=== PATIENT | female | born 1965 | race Caucasian/White ===

== ENCOUNTER 2023-10-05 11:19 | Emergency (ER) | payer OTHER, SELFPAY ==
[2023-10-05 11:28] VITALS: BP 129/83; PULSE 98; RESP 16; TEMP 36.6; O2SAT 97
--- NOTE | 2023-10-05 12:03 | ED.EAR ---
HPI - Ear Problem General Chief complaint: Ear Stated complaint: Dizzy;Earache Time Seen by Provider: 10/05/23 11:52 Source: patient and RN notes reviewed Mode of arrival: ambulatory Limitations: no limitations History of Present Illness HPI Narrative: Patient presents today complaining of 2 day history of feeling off balance and dizzy. She also reports some right ear discomfort and pain since yesterday. Denies any additional symptoms. Reports she had similar symptoms of approximately 10 years ago and had an ear infection.. She has taken Zyrtec without relief. Review of Systems Review of Systems: CONSTITUTIONAL: Denies body aches, fever, chills, or sweats. EYES: Denies visual changes, redness, or discharge. ENT: Denies rhinorrhea, congestion, sore throat. + right ear pain CARDIOVASCULAR: Denies chest pain, palpitations, or edema. RESPIRATORY: Denies cough or dyspnea. GASTROINTESTINAL: Denies abdominal pain, nausea, vomiting, or diarrhea. GENITOURINARY: Denies dysuria or hematuria. SKIN: Denies rash, itching, or wounds. MUSCULOSKELETAL: Denies back pain, joint pain, or myalgia. NEUROLOGIC: Denies headache, numbness, tingling, or weakness.+ dizziness PSYCH: Denies depression or anxiety. PMFSH Comments At time of signature, I have reviewed and agree with nursing past medical, surgical, social and family history unless otherwise noted. Please see nursing chart for further information. There is no relevant family history pertinent to the presenting complaint Exam Narrative: GENERAL: Well-appearing, well-nourished, and in no acute distress. HEAD: Normocephalic, atraumatic. EYES: EOMI. PERRL. No redness or drainage. Conjunctivae normal. ENT: Mucous membranes pink and moist. Left TM normal. Right TM bulging with clear fluid with bubbles. NECK: Normal AROM. CHEST: No respiratory distress. EXTREMITIES: Normal range of motion. No edema. SKIN: Warm, dry, no rash. Capillary refill normal. Normal skin turgor. NEURO: No focal deficits. Alert and oriented x3. Gait unsteady. PSYCH: Normal affect. No signs of depression or anxiety. Course Course Level of Care: Express Care Visit Vital Signs Vital signs: Vital Signs Temperature 97.8 F 10/05/23 11:28 Pulse Rate 98 10/05/23 11:28 Respiratory Rate 16 10/05/23 11:28 Blood Pressure 129/83 10/05/23 11:28 Pulse Oximetry 97 10/05/23 11:28 Temperature 97.8 F 10/05/23 11:28 Pulse Rate 98 10/05/23 11:28 Respiratory Rate 16 10/05/23 11:28 Blood Pressure 129/83 10/05/23 11:28 Pulse Oximetry 97 10/05/23 11:28 Reviewed Medical Decision Making MDM Narrative Medical decision making narrative: Patient has serous effusion. Discussed [id number] treatment with Sudafed, Flonase, and meclizine. Differential Diagnosis Differential Diagnosis: Otitis media, otitis externa, ruptured TM, serous otitis, eustachian tube dysfunction, vertigo, BPPV, Meniere's disease Vital Signs Vital Signs: Vital Signs Temperature 97.8 F 10/05/23 11:28 Pulse Rate 98 10/05/23 11:28 Respiratory Rate 16 10/05/23 11:28 Blood Pressure 129/83 10/05/23 11:28 Pulse Oximetry 97 10/05/23 11:28 Temperature 97.8 F 10/05/23 11:28 Pulse Rate 98 10/05/23 11:28 Respiratory Rate 16 10/05/23 11:28 Blood Pressure 129/83 10/05/23 11:28 Pulse Oximetry 97 10/05/23 11:28 Critical Care Time Critical Care Time Critical Care Time: No Discharge Plan Discharge Clinical Impression: Vertigo Acute serous otitis media of right ear Qualifiers: Recurrence: non-recurrent Qualified Code(s): H65.01 - Acute serous otitis media, right ear Patient Disposition: Home, Self-Care Condition: Stable Instructions: Fluid In The Ear (Serous Otitis Media) (ED), Vertigo (DC) Additional Instructions: You have a collection of fluid behind the right eardrum. Please take Sudafed, Flonase, and some meclizine(Bonine) for your symptoms. If
== END 2023-10-05 12:10 | disposition home or self-care (01) ==
PROVIDERS: Emergency Provider Nurse Practitioner
DX: R42 Dizziness and giddiness (principal); H65.01 Acute serous otitis media, right ear
CPT/HCPCS: 99211; G0463

== ENCOUNTER 2024-04-29 08:01 | Emergency (ER) | payer OTHER, SELFPAY ==
--- NOTE | 2024-04-29 08:12 | ED.URI ---
HPI - URI/Sore Throat General Chief Complaint: Upper Respiratory Infection Stated Complaint: COUGH/FEVER/BODY ACHES Source: patient and RN notes reviewed Mode of arrival: ambulatory Limitations: no limitations History of Present Illness HPI Narrative: 58 year old female presents to the clinic today with a chief complaint of cough, congestion, and fevers. Onset 3 days. She reports a fever as high as 101, productive cough with green sputum, nasal/chest congestion, and ear pressure. She has been taking Tylenol and OTC Nyquil. She denies any associated dyspnea, chest pain, palpitations, nausea, vomiting, or diarrhea. She recently traveled here from [place] and denies any known sick contacts. MD elicited complaint: cough Related Data Allergies Allergy/AdvReac Type Severity Reaction Status Date / Time No Known Allergies Allergy Verified 04/29/24 08:28 Review of Systems Review of Systems: CONSTITUTIONAL: Endorses malaise and fever EYES: Denies visual changes, redness, or discharge ENT: Reports rhinorrhea, congestion, otalgia. Denies sore throat CARDIOVASCULAR: Denies chest pain, palpitations, edema RESPIRATORY: Reports cough, post nasal drainage. Denies dyspnea GASTROINTESTINAL: Denies abdominal pain, nausea, vomiting, diarrhea SKIN: Denies rash or itching MUSCULOSKELETAL: Endorses myalgia NEUROLOGIC: Denies headache [facility] Surgical History Surgical History H/O bariatric surgery Social History Social History Smoking status: Never smoker Exam Narrative: GENERAL: Ill-appearing, nontoxic, no acute distress. HEAD: Normocephalic EYES: PERRLA, conjunctivae clear ENT: Mucous membranes moist. Nasal congestion noted. TM pearly jain with dull light reflex bilaterally, right ear with minimal clear effusion. No tragal tenderness NECK: Supple. No lymphadenopathy CHEST: Clear to auscultation, breath sounds equal. No wheezing, rhonchi, rales, or stridor. No respiratory distress, speaks in full sentences. Frequent moist, productive cough HEART: Regular rate and rhythm. No murmur heard. SKIN: Warm, dry, no rash. NEURO: Alert and oriented x3. PSYCH: Normal mood and affect Course Course Emergency Course: Patient is aware of diagnosis, understands and agrees to treatment plan. Anticipatory guidance given. Patient agrees to follow-up as directed and is aware of reasons to seek care at the emergency department. Portions of this record may have been created with voice recognition software Level of Care: Express Care Visit Vital Signs Vital signs: reviewed MDM - URI/Sore Throat MDM Narrative Medical decision making narrative: Discussed physical exam findings and COVID test result. Reviewed prescriptions. Advised supportive measures and signs/symptoms to go to the ER. Pt is appropriate for outpt treatment and f/u. Differential Diagnosis Differential diagnosis: Likely upper respiratory infection, otitis media, sinusitis, viral infection, bronchitis and influenza Discharge Plan Discharge Clinical Impression: COVID-19 Patient Disposition: Home, Self-Care Condition: Stable Instructions: COVID-19 (Coronavirus Disease 2019) (ED) Additional Instructions: Your rapid COVID test was positive today. The following updated recommendations have been made by the CDC and local Health Departments, regarding COVID-19: - When people get sick with a respiratory virus, they stay home and away from others. - Return to normal activities when, for at least 24 hours, symptoms are improving overall, and if a fever was present, it has been gone without use of a fever-reducing medication. - Once people resume normal activities, they are encouraged to take additional prevention strategies for the next 5 days to curb disease spread, such as taking more steps for venetian blind cleaner air, enhancing hygiene practices, wearing a well-fitting mask, ke
[2024-04-29 08:17] VITALS: BP 133/82; PULSE 111; RESP 16; TEMP 36.8; O2SAT 98
--- NOTE | 2024-04-29 09:00 | PC.NURSE ---
[id number]- pt called and states that the [facility] doesnt have a pharmacist on duty right now, and asked if we could resend the scripts to the [facility] in [place].
== END 2024-04-29 08:38 | disposition home or self-care (01) ==
PROVIDERS: Emergency Provider Nurse Practitioner Family
DX: U07.1 COVID-19 (principal)
CPT/HCPCS: 87426; 99213; G0463

== ENCOUNTER 2024-05-29 13:37 | Emergency (ER) | payer OTHER, SELFPAY ==
[2024-05-29] VITALS (12 sets, daily range): BP systolic 124–150; BP diastolic 61–85; PULSE 81–105; RESP 17–22; TEMP 36.4–36.6; O2SAT 96–99
--- NOTE | ~2024-05-29 | XR_ITS ---
A [id number] Ordering provider: Leonard Ashton MD History: . Left posterior rib pain after fall . Comparison: None. FINDINGS: BONES: No acute left rib fracture or fracture of the visualized osseous structures. LEFT LUNG: No effusions or infiltrates. No pneumothorax. Prominent markings are seen in the lingula. SOFT TISSUES: Normal. IMPRESSION: No left rib fracture. (Note: subtle/nondisplaced rib fractures can be occult on plain films and if t here is continued clinical suspicion for rib fracture, recommend follow up CT chest.) Reviewed, dictated and finalized at location A. IMPRESSION: No left rib fracture. (Note: subtle/nondisplaced rib fractures can be occult o n plain films and if there is continued clinical suspicion for rib fracture, re commend follow up CT chest.)
--- NOTE | ~2024-05-29 | CT_ITS ---
EXAMINATION: CT diagnostic chest wo con DATE: 05/29/2024 17:30 INDICATION: Eval L rib fracture TECHNIQUE: Computed tomography (CT) of the chest was performed without intravenous contrast. Addition al 3D reconstructions utilizing coronal maximum intensity projection (MIP) were performed. Automated exposure control and iterative reconstruction technique were employed. The dose-length product was 78 5.62 mGy-cm. COMPARISON: None FINDINGS: There are scattered atelectasis in both lungs most prominent in the left lower lobe with mild elevati on of left hemidiaphragm. No pleural effusion or pneumothorax. Small pneumatocele in the right lower lobe. There are a few small pulmonary nodules in the right middle lobe measuring up to 5 mm. Heart si ze is normal. Atherosclerotic coronary artery calcific lesion. No pericardial effusion. Thoracic aort a is normal in caliber. No pathologically enlarged thoracic lymphadenopathy. Cholecystectomy clips in the gallbladder fossa. 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 Nondisplace d fracture of the lateral left eighth rib. IMPRESSION: 1. Scattered atelectasis in both lungs most prominent in the left lower lobe which likely related to splinting secondary to nondisplaced lateral left eighth rib fracture. No pneumothorax or pleural effu korey. 2. A few small nodules measuring up to 5 mm in the right middle lobe. If the patient is low risk for lung cancer, no follow-up is needed. If the patient is high risk (i.e., history of smoking or asbesto s or significant radiation exposure), optional follow-up chest CT could be considered at 12 months. Reviewed, dictated and finalized at location A. IMPRESSION: 1. Scattered atelectasis in both lungs most prominent in the left lower lobe wh ich likely related to splinting secondary to nondisplaced lateral left eighth r ib fracture. No pneumothorax or pleural effusion. 2. A few small nodules measuring up to 5 mm in the right middle lobe. If the pa tient is low risk for lung cancer, no follow-up is needed. If the patient is hi gh risk (i.e., history of smoking or asbestos or significant radiation exposure ), optional follow-up chest CT could be considered at 12 months.
--- NOTE | 2024-05-29 16:30 | ECG_ITS ---
Test Date: 2024-05-29 16:53:29 Measurements Intervals [place] Rate: 88 P: 32 MD: 157 QRS: -16 QRSD: 78 T: 30 QT: 348 QTc: 422 Interpretive Statements SINUS RHYTHM CONSIDER PREVIOUS INFERIOR INFARCTION POOR R-WAVE PROGRESSION ABNORMAL ELECTROCARDIOGRAM No previous ECG available for comparison Electronically Signed On 05-30-2024 09:26:08 CDT by Satinder Bowman M.D.
[2024-05-29] MEDS: SODIUM CHLORIDE 0.9% IV 2,000 ML 999 ML IV CONT (17:04)
[2024-05-29] MEDS: methocarbamoL 750 MG TABLET 1500 MG PO (17:05)
[2024-05-29] MEDS: ACETAMINOPHEN 500 MG TABLET 1000 MG PO (17:05)
[2024-05-29] MEDS: KETOROLAC 15 MG/ML VIAL (*BKC) IV PUSH (17:06)
--- NOTE | 2024-05-29 17:21 | ED.GENADULT ---
HPI - General Adult General Chief complaint: Fall Stated complaint: fall, woke up on the floor, L sided rib pain Time Seen by Provider: 05/29/24 16:19 History of Present Illness HPI narrative: This is a 58-year-old female presenting ED with left-sided rib pain. Patient says that she went to bed at 8:30 p.m.. She woke up in the landing next to her bathroom. She then went back to sleep and when she got up at 5:00 a.m. She went to her bathroom she noticed that multiple objects were knocked over in the bathroom. She does not remember any falls or even getting up to use the restroom. Her only complaint at this time is pain in her back left ribs. Pain is worse with inspiration. It is tender to touch. She is worried she cracked her ribs. No chest pain difficulty breathing fevers or recent nausea vomiting diarrhea. Related Data Allergies Allergy/AdvReac Type Severity Reaction Status Date / Time No Known Allergies Allergy Verified 04/29/24 08:28 [facility] Surgical History Surgical History H/O bariatric surgery Social History Social History Smoking status: Never smoker Exam Narrative: APPEARANCE: No apparent distress. Head: atraumatic. EYES: EOMI, NOSE: Atraumatic NECK: Trachea midline RESPIRATORY: No increased rate of breathing, clear to auscultation, splinting CARDIOVASCULAR: RRR, no peripheral edema ABDOMINAL: Non-distended soft nontender MUSCULOSKELETAl: Tenderness to palpation along the posterior left rib cage. No other injuries on head to toe palpation. NEURO: Alert. Moving 4/4 extremities SKIN:: Warm, dry. Normal color PSYCHIATRIC: Normal affect Course Vital Signs Vital signs: Vital Signs Temperature 97.6 F 05/29/24 13:46 Pulse Rate 99 05/29/24 13:46 Respiratory Rate 20 05/29/24 13:46 Blood Pressure 140/84 05/29/24 13:46 Pulse Oximetry 98 05/29/24 13:46 Oxygen Delivery Room Air 05/29/24 13:46 Temperature 97.8 F 05/29/24 15:59 Pulse Rate 96 05/29/24 15:59 Respiratory Rate 18 05/29/24 15:59 Blood Pressure 130/81 05/29/24 15:59 Pulse Oximetry 99 05/29/24 15:59 Oxygen Delivery Room Air 05/29/24 13:46 Medical Decision Making [facility] Narrative Medical decision making narrative: -Course: 58-year-old female presenting with a fall overnight. Trauma workup significant for a lateral left rib fracture. Patient given pain medication and incentive spirometer. In terms of the patient's syncope her workup was unremarkable. She has normal laboratory values, negative troponin and BMP. Unremarkable EKG. Likely orthostatic after using the restroom. Patient is comfortable follow-up with primary care physician. -DDX includes but is not limited to: Rib fracture, pneumothorax, hemothorax, cardiac syncope, dehydration -Independent interpretation of studies: Labs reviewed Chest x-ray negative CT showed a left lateral rib fracture Independent EKG interpretation: Rhythm [sinus], Rate [88], [place] -[normal], ME -[normal], QRS [narrow], QTC [normal], T waves -[negative for concerning inversions], ST Segments - [Negative for concerning elevations] Final interpretations: [Normal Sinus Rhythm] -Interventions: Toradol, Tylenol, oxycodone, Robaxin, lidocaine -Shared decision making / Disposition: Discharged -RX oxycodone, Tylenol, Motrin, Robaxin, lidocaine patch Vital Signs Vital Signs: Vital Signs Temperature 97.6 F 05/29/24 13:46 Pulse Rate 99 05/29/24 13:46 Respiratory Rate 20 05/29/24 13:46 Blood Pressure 140/84 05/29/24 13:46 Pulse Oximetry 98 05/29/24 13:46 Oxygen Delivery Room Air 05/29/24 13:46 Temperature 97.8 F 05/29/24 15:59 Pulse Rate 96 05/29/24 15:59 Respiratory Rate 18 05/29/24 15:59 Blood Pressure 130/81 05/29/24 15:59 Pulse Oximetry 99 05/29/24 15:59 Oxygen Delivery Room Air 05/29/24 13:46 Discharg
[2024-05-29 17:24] LABS: Basophils Percent Auto 0.4 % (0.2-1.2); Eosinophils Percent Auto 0.6 % (0-4.4); Hematocrit 42.9 % (37.0-47.0); Hemoglobin 13.8 g/dL (12.0-15.0); Immature Granulocyte Absolute 0.02 K/mm3 (0.00-0.031); Immature Granulocyte Percent A 0.3 % (0-0.5); Lymphocytes Absolute Auto 2.06 K/mm3 (0.9-3.2); Lymphocytes Percent Auto 28.8 % (18.3-44.2); Mean Corpuscular HGB Conc 32.2 g/dl (32-36); Mean Corpuscular Hemoglobin 29.4 pg (26-34); Mean Corpuscular Volume 91.5 fl (80-100); Mean Platelet Volume 9.6 fl (7.4-10.4); Monocytes Absolute Auto 0.5 K/mm3 (0.1-0.6); Monocytes Percent Auto 6.7 % (2.6-8.5); Neutrophils Absolute Auto 4.5 K/mm3 (1.3-6.7); Neutrophils Percent Auto 63.2 % (45.5-73.1); Platelet Count Result 292 k/mm3 (150-375); Red Blood Count 4.69 M/mm3 (4.2-5.4); Red Cell Distribution Width 15.1 % (11.5-14.5); White Blood Count 7.2 K/mm3 (4.5-10.0)
[2024-05-29 17:34] LABS: Alanine Aminotransferase 15 U/L (6-35); Albumin Level 4.2 g/dL (3.5-5.1); Alkaline Phosphatase 99 U/L (38-126); Anion Gap 6 mmol/L (4-12); Aspartate Amino Transferase 25 U/L (14-36); Bilirubin,Total 0.4 mg/dL (0.2-1.3); Blood Urea Nitrogen 17 mg/dL (7-17); Carbon Dioxide 32 mmol/L (22-30); Chloride 98 mmol/L (98-107); Estimated CRCL calculation 97 ml/min; Estimated Glomerular Filt Rate > 60; Glucose 104 mg/dL (65-110); Potassium 4.1 mmol/L (3.4-5.0); Sodium 136 mmol/L (137-145)
[2024-05-29 17:46] LABS: NT Pro B Type Natriuretic Pept 25 pg/mL (19.9-100); Troponin I < 0.012 ng/mL (0.000-0.034)
[2024-05-29] MEDS: oxyCODONE HCL (*CRX) 5 MG TAB IR PO (19:09)
[2024-05-29] MEDS: LIDOCAINE 5% PATCH 1 PATCH TRANSDERM (19:10)
== END 2024-05-29 19:36 | disposition home or self-care (01) ==
PROVIDERS: Emergency Provider Emergency Medicine
DX: S22.32XA Fracture of one rib, left side, initial encounter for closed fracture (principal); R55 Syncope and collapse; Z98.84 Bariatric surgery status; R91.8 Other nonspecific abnormal finding of lung field; R94.31 Abnormal electrocardiogram [ECG] [EKG]; W18.39XA Other fall on same level, initial encounter
CPT/HCPCS: 36415; 71101; 71250; 80053; 83880; 84484; 85025; 93005; 96361; 96374; 99284; A9270; J1885; J7030

== ENCOUNTER 2025-04-03 08:04 | Emergency (ER) | payer OTHER, SELFPAY ==
--- NOTE | ~2025-04-03 | XR_ITS ---
EXAMINATION: XR chest 2V DATE: 04/03/2025 08:51 INDICATION: Cough TECHNIQUE: frontal and lateral views of the chest were obtained. COMPARISON: Chest radiograph and CT dated 05/29/2024 FINDINGS: Unchanged elevation the left hemidiaphragm. Mild streaky left basilar atelectasis. No pulmonary edema , pleural effusion or pneumothorax. The cardiomediastinal silhouette is normal. Mild thoracic dextroc urvature. IMPRESSION: 1. Chronic elevation left hemidiaphragm with mild streaky left basilar atelectasis. Reviewed, dictated and finalized at location A. IMPRESSION: 1. Chronic elevation left hemidiaphragm with mild streaky left basilar atelecta sis.
[2025-04-03 08:15] VITALS: BP 131/70; PULSE 101; RESP 16; TEMP 36.6; O2SAT 97
[2025-04-03 08:29] LABS: EDSTREPNEGPOS1 Negative (Negative)
--- NOTE | 2025-04-03 08:43 | ED.GENADULT ---
HPI - General Adult General Chief complaint: Upper Respiratory Infection Stated complaint: Sore Throat Source: patient Mode of arrival: ambulatory Limitations: no limitations History of Present Illness HPI narrative: Pt presents for evaluation of cough and sore throat. She states she has experienced a cough for the past month. She went to urgent care on 03/15 and had a chest x-ray that showed pneumonia. The provider that evaluated her recommended treatment with two antibiotics. Patient declined taking to, desiring only to take one. She completed a course of seven days of augmentin. Her symptoms improved but did not resolve. Two days ago she experienced worsening of her symptoms. She has a productive cough of green sputum and experiences wheezing when she lays down at night. She has a history of recurrent bronchitis. She has not been diagnosed with asthma or COPD. She does not smoke. She previously had a script for albuterol inhaler but ran out. No recent sick contacts to her knowledge. She reports a temperature of 100 F at home today. No chills, nausea, vomiting, diarrhea or SOB. She is getting ready to leave for cruise. Related Data Allergies Allergy/AdvReac Type Severity Reaction Status Date / Time No Known Allergies Allergy Verified 04/03/25 08:16 Review of Systems Review of Systems: CONSTITUTIONAL: Denies fever, chills, or sweats. EYES: Denies visual changes, redness, or discharge. ENT: Reports sore throat.Denies rhinorrhea, congestion, or otalgia. CARDIOVASCULAR: Denies chest pain, palpitations, or edema. RESPIRATORY: Reports cough. Reports wheezing at night. GASTROINTESTINAL: Denies abdominal pain, nausea, vomiting, or diarrhea. GENITOURINARY: Denies dysuria or hematuria. SKIN: Denies rash or itching. MUSCULOSKELETAL: Denies back pain, joint pain, or myalgia. NEUROLOGIC: Denies headache, numbness, dizziness, or weakness. PSYCHIATRIC: Denies anxiety or depression. [facility] Past Medical History Medical History No pertinent past medical history Surgical History Surgical History H/O bariatric surgery Family History Family History Mother Family history non-contributory Social History Social History (Updated 04/03/25 @ 08:48 by MARA GordilloP, ) Smoking status: Never smoker Substance use: never Gender identity (if verbalized by the patient): Female Exam Narrative: GENERAL: Well-appearing, well-nourished, and in no acute distress. HEAD: Normocephalic, atraumatic. EYES: PERRLA and EOMI. ENT: Nares clear, no rhinorrhea or epistaxis. Mucous membranes moist. Oropharynx without tonsillar hypertrophy exudate or other lesions. Bilateral TMs pearly jain nonbulging NECK: Supple. No adenopathy or masses. No carotid bruits or JVD CHEST: cough present on exam. Clear to auscultation. No respiratory distress. No wheezes rales or rhonchi HEART: Regular rate and rhythm. No murmur heard. Normal peripheral pulses. ABDOMEN: Soft, nontender, nondistended, normal active bowel sounds. EXTREMITIES: Normal range of motion. No edema. SKIN: Warm, dry, no rash. NEURO: No focal deficits. Alert and oriented x3. PSYCH: Normal mood and affect. Course Course Emergency Course: This is a 59-year-old female who presented for evaluation of sick symptoms. Strep negative. Chest x-ray read as atelectasis. patient was only given monotherapy for her pneumonia. Given the fact that she never had complete resolution of her symptoms, her clinical exam is consistent with pneumonia. Will discharge with Augmentin, doxycycline, prednisone, albuterol, guaifenesin with codeine as she is leaving for a cruise. She should follow up with her PCP and go to the ER for worsening symptoms. Pt in agreement with plan of care. Level of Care: Express Care Visit Vital Signs Vital signs: Vital Signs Temperature 36.6 C 04/03/25 08:15 Pulse Rate 101 H 04/03/25 08:15 Respiratory Rate 16 04/03/25 08:15 Blood Pressure 131/70 04/03/25 08:15 Pulse Oximetry 97 04/03/25 08:15 Oxygen Delivery Room Air 04/03/25 08:15 Temperature 36.6 C 04/03/25 08:15 Pulse Rate 101 H 04/03/25 08:15 Respiratory Rate 16 04/03/25 08:15 Blood Pressure 131/70 04/03/25 08:15 Pulse Oximetry 97 04/03/25 08:15 Oxygen Delivery Room Air 04/03/25 08:15 Medical Decision Making Vital Signs Vital Signs: Vital Signs Temperature 36.6 C 04/03/25 08:15 Pulse Rate 101 H 04/03/25 08:15 Respiratory Rate 16 04/03/25 08:15 Blood Pressure 131/70 04/03/25 08:15 Pulse Oximetry 97 04/03/25 08:15 Oxygen Delivery Room Air 04/03/25 08:15 Temperature 36.6 C 04/03/25 08:15 Pulse Rate 101 H 04/03/25 08:15 Respiratory Rate 16 04/03/25 08:15 Blood Pressure 131/70 04/03/25 08:15 Pulse Oximetry 97 04/03/25 08:15 Oxygen Delivery Room Air 04/03/25 08:15 Lab Data Labs: Lab Results 04/03/25 Range/Units 08:28 POC Grp A Strep Screen Negative (Negative) Imaging Data Radiologist's impression: EXAMINATION: XR chest 2V DATE: 04/03/2025 08:51 INDICATION: Cough TECHNIQUE: frontal and lateral views of the chest were obtained. COMPARISON: Chest radiograph and CT dated 05/29/2024 FINDINGS: Unchanged elevation the left hemidiaphragm. Mild streaky left basilar atelectasis. No pulmonary edema, pleural effusion or pneumothorax. The cardiomediastinal silhouette is normal. Mild thoracic dextrocurvature. IMPRESSION: 1. Chronic elevation left hemidiaphragm with mild streaky left basilar atelectasis. Discharge Plan Discharge Clinical Impression: Community acquired pneumonia Patient Disposition: Home Condition: Stable Instructions: Antibiotic Form, Community Acquired Pneumonia (ED) Patient Language: Maltese Prescriptions: New amoxicillin-pot clavulanate 875-125 mg tablet 1 tablet PO Q12H Qty: 20 0RF doxycycline hyclate 100 mg tablet 100 mg PO BID Qty: 20 0RF prednisone 50 mg tablet 50 mg PO DAILY Qty: 5 0RF albuterol sulfate [Ventolin HFA] 90 mcg/actuation HFA aerosol inhaler 2 puff inhalation QID PRN (Reason: shortness of breath or wheezing) Qty: 8.5 0RF No Action albuterol sulfate 90 mcg/actuation HFA aerosol inhaler 2 inh inhalation QID PRN (Reason: shortness of breath or wheezing) Qty: 8.5 0RF acetaminophen 500 mg tablet 1,000 mg PO TID PRN (Reason: richard) 7 Days Qty: 42 0RF Follow-up/Referrals: Jimi Hoskins MD [Physician] - Time of Disposition: 09:18
== END 2025-04-03 09:20 | disposition home or self-care (01) ==
PROVIDERS: Emergency Provider Nurse Practitioner
DX: J18.9 Pneumonia, unspecified organism (principal)
CPT/HCPCS: 71046; 87081; 87880; 99213; G0463

== ENCOUNTER 2025-10-11 13:31 | Emergency (ER) | payer OTHER, SELFPAY ==
[2025-10-11 13:40] VITALS: BP 187/98; PULSE 96; RESP 20; TEMP 36.9; O2SAT 98
--- NOTE | 2025-10-11 13:40 | ED.URI ---
HPI - URI/Sore Throat General Chief Complaint: Upper Respiratory Infection Stated Complaint: Cough Time Seen by Provider: 10/11/25 13:41 Source: patient, RN notes reviewed and old records reviewed Mode of arrival: ambulatory Limitations: no limitations History of Present Illness HPI Narrative: 60 year old female presents to [facility] care with complaints of cough for the past 9 days which has progressively gotten worse with patient having fever of 101F yesterday. Patient reports that [place] went on cruise form the 09[place]26 [place] the and then started with the cough on the 02 of October. Patient reports that she had a fever yesterday of 101F and she has been using her inhaler, Tylenol and Mucinex without improvement in her symptoms. She reports that she is suppose to be leaving on cruise again this Saturday and needs to know if she is contagious and needs an antibiotic. MD elicited complaint: fever, cough, rhinorrhea, nasal congestion and sinus pain Pertinent past history: pneumonia (04/07) Onset (ago): day(s) (9) Consistency: progressively worsening Severity: moderate Able to tolerate fluids by mouth: No Treatments prior to arrival: acetaminophen and other (Mucinex, Inhaler) Related Data Home Medications ?Medication ?Instructions ?Recorded ?Confirmed ?Last Taken ?Type albuterol sulfate 90 mcg/actuation inhalation 10/11/25 Unknown History aerosol inhaler uvfycd-kbpegeoj-dzoylxk (pork) PO 10/11/25 Unknown History Allergies Allergy/AdvReac Type Severity Reaction Status Date / Time No Known Allergies Allergy Verified 10/11/25 13:45 Review of Systems Review of Systems: CONSTITUTIONAL: Reports malaise, chills, sweats, or fever. EYES: Denies visual changes, redness, or discharge. ENT: Reports rhinorrhea, congestion, sinus pain,no otalgia and no sore throat. CARDIOVASCULAR: Denies chest pain, palpitations, or edema. RESPIRATORY: Reports acute cough.? Denies dyspnea. GASTROINTESTINAL: Denies abdominal pain, nausea, vomiting, diarrhea SKIN: Denies rash or itching. MUSCULOSKELETAL: Denies myalgia. NEUROLOGIC: Denies headache. 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 There is no relevant family history pertinent to the presenting complaint Exam Narrative: GENERAL: Ill-appearing, well-nourished, and in no acute distress. HEAD: Normocephalic EYES: PERRLA, conjunctivae clear ENT: Nares clear, turbinates edematous and erythematous, clear discharge, sinus pressure Mucous membranes moist. TM pearly jain with dull light reflex bilaterally; no tragal tenderness. Oropharynx erythematous without lesions. Tonsils not enlarged and without exudate, no drooling, no hoarseness, no trismus, uvula midline.post nasal drainage. NECK: Supple. No lymphadenopathy CHEST: Scattered wheezing on auscultation, breath sounds equal. + wheezing,no rhonchi, rales, or stridor. No respiratory distress, speaks in full sentences, productive cough yellow pglegm SAO2 98% on room air. HEART: Regular rate and rhythm. No murmur heard. SKIN: Warm, dry, no rash. NEURO: Alert and oriented x3. PSYCH: Normal mood and affect Course Course Level of Care: Express Care Visit Vital Signs Vital signs: Vital Signs Temperature 36.9 C 10/11/25 13:40 Pulse Rate 96 10/11/25 13:40 Respiratory Rate 20 10/11/25 13:40 Blood Pressure 187/98 H 10/11/25 13:40 Pulse Oximetry 98 10/11/25 13:40 Oxygen Delivery Room Air 10/11/25 13:40 Temperature 36.9 C 10/11/25 13:40 Pulse Rate 96 10/11/25 13:40 Respiratory Rate 20 10/11/25 13:40 Blood Pressure 187/98 H 10/11/25 13:40 Pulse Oximetry 98 10/11/25 13:40 Oxygen Delivery Room Air 10/11/25 13:40 reviewed [facility] Narrative Medical decision making narrative: 60 year old female with complaints of sinus congestion and drainage sinus pressure and acute cough with fevers yesterday of 101F with illness since the of this month. Patient does have production cough with wheezing noted has been using her inhaler taking Mucinex and Tylenol without improvement.Will treat with Augmentin, codeine cough medicationa nd prednisone with patient to use Tylenol for fevers and antihistamine and Coricidin decongestants.Patient tested negative for COVID and Influenza. Anticipatory guidance and reasons to seek care in ED reviewed with understanding verbalized. Differential Diagnosis Differential Diagnosis: Differential diagnostic considerations for upper respiratory infection include upper respiratory infection, croup, otitis media, sinusitis, viral infection, bronchitis, influenza, pharyngitis, strep, uvulitis.? Lab Data [facility] Lab Attestation statement: I personally reviewed the patient's lab results. Lab results narrative: COVID antigen negative, Influenza A&B negative Labs: Lab Results 10/11/25 Range/Units 13:57 POC Influenza A Ag Negative (Negative) POC Influenza B Ag Negative (Negative) POC SARS CoV-2 Ag Negative (Negative) reviewed Critical Care Time Critical Care Time Critical Care Time: No Discharge Plan Discharge Clinical Impression: Bacterial sinusitis, Acute cough Patient Disposition: Home Condition: Stable Instructions: Antibiotic Form, Sinusitis (ED), Acute Cough (ED) Additional Instructions: Increase fluids especially juices and water Ayaa-rpm-bqwlchr cough and cold medicine of your choice for your symptoms Prescription cough medicine as directed--caution drowsiness and no driving or alcohol Zyrtec Claritin or Debbi daily use Coricidin brand decongestant Continue your inhaler/nebulizer as directed Steroids as directed--take with food heat to the face 20-30 minutes 4-6 times a day for pain Salt water gargles, throat lozenges or throat sprays as desired Antibiotic as directed--finished the medication If your symptoms persist, change or worsen significantly before you can contact your personal physician then please, without delay, go to the emergency department for further evaluation. Follow-up with PCP in 7-10 days or sooner if needed Follow up with PCP soon in regards to your blood pressure which is elevated above threshold for referral. Blood pressure above 120/80 may indicate pre-hypertension. 187 Patient Language: Kinyarwanda Prescriptions: New amoxicillin-pot clavulanate 875-125 mg tablet 1 tablet PO Q12H Qty: 20 0RF Rx Instructions: take with food recommend taking probiotic or eating activia yogurt while on medication prednisone 20 mg tablet 40 mg PO DAILY 5 Days Qty: 10 0RF codeine-guaifenesin 10-100 mg/5 mL liquid 10 ml PO Q6H PRN (Reason: cough) Qty: 200 0RF No Action albuterol sulfate 90 mcg/actuation HFA aerosol inhaler INHALATION ehfwkq-lwwzhrbu-cwiomjd (pork) [Creon] PO Patient Comments: 3 times a day minimal per pt Follow-up/Referrals: Duc,ESE ParedesC [Primary Care Provider] Stand Alone Forms: Work/School Release IP Time of Disposition: 14:08 Quality Hayden Coma Scale Eyes: Open Verbal: Oriented and Alert Motor: Follows Commands [place] Coma Total Score: 15
--- OUTSIDE RECORDS SUMMARY | 2025-10-11 13:44 | XMS_ITS | Encounter Summary ---
Author Organization [facility] Address [address] [place] [id number] Care Team Providers Care Industrial Design Engineer Name Role Phone Wilda Ocampo MD Primary Care Provider + Lisset Xavier PA-C Primary Care Provider [phone]- [phone] Encounter Details Date Type Department Care Team (Late st Contact Info) Description 07/02/2025 MyChart Message Enc [address] [phone] Lisset Xavier PA-C [address] [place] [phone] Colonoscopy Results Social History Tobacco Use Types Packs/Day Years Used Date Smoking Tobacco: Never Passive Smoke Exposure: Never Smokeless Tobacco: Never Alcohol Use Standard Drinks/Week Comments Not Currently 0 (1 standard drink = 0.6 oz pur e alcohol) occasional PHQ-2 Answer Date Recorded Patient Health Questionnaire-2 Score 0 06/15/2025 Comments No Sex and Gender Information Value Date Recorded Sex Assigned at Female 06/15/2025 12:47 PM CDT Legal Sex Female 10:02 PM DATA COMMUNICATIONS ENGINEER Gender Identity Female 06/15/2025 12:47 PM CDT Sexual Orientation Not on file documented as of this encounter Plan of Treatment Upcoming Encounters Date Type Department Care Team (Late st Contact Info) Description 10/18/2025 12:40 PM DATA COMMUNICATIONS ENGINEER Office Visit [address] [phone] Lisset Xavier PA-C [address] [place] [phone] documented as of this encounter Visit Diagnoses Not on filedocumented in this encounter Care Teams Industrial Design Engineer Relationship Specialty Start Date End Date Wilda Ocampo MD [address] [place] [id number] PCP - General FAMILY PRACTICE 09/14/25 Lisset Xavier PA-C [address] [place] [phone] PCP - General PHYSICIAN MUSCULOSKELETAL PHYSIOTHERAPIST 06/15/25 09/13/25 documented as of this encounter
--- OUTSIDE RECORDS SUMMARY | 2025-10-11 13:44 | XMS_ITS | Encounter Summary ---
Author Organization [facility] Address [address] [place] [id number] Care Team Providers Care Finance Lecturer Name Role Phone Wilda Ocampo MD Primary Care Provider + Lisset Xavier PA-C Primary Care Provider [phone]- [phone] Encounter Details Date Type Department Care Team (Late st Contact Info) Description 08/04/2025 [email or web address] Message Enc [facility] Family Medicine - [place] [phone] Lisset Xavier PA-C [address] [place] [phone] ECHO Results Social History Tobacco Use Types Packs/Day [...] PM CDT Legal Sex Female 10:02 PM ENVIRONMENTAL ENGINEER Gender Identity Female 06/15/2025 12:47 PM CDT Sexual Orientation Not on file documented as of this encounter Progress Notes * Lisset Xavier PA-C - 08/05/2025 8:38 PM CDT She just needs to continue follow up with lead oxide mill tender and as he directs documented in this encounter Plan of Treatment Upcoming Encounters Date Type Department Care Team (Late st Contact Info) Description 10/18/2025 12:40 PM ENVIRONMENTAL ENGINEER Office Visit [facility] Family Medicine - [address] [phone] Lisset Xavier PA-C [address] [place] [phone] documented as of this encounter Visit Diagnoses Not on filedocumented in this encounter Care Teams Finance Lecturer Relationship Specialty Start Date End Date Wilda Ocampo MD [address] [place] [id number] PCP - General FAMILY PRACTICE 09/14/25 Lisset Xavier PA-C [address] [place] [phone] PCP - General PHYSICIAN DOUGH MOLDER 06/15/25 09/13/25 documented as of this encounter
--- OUTSIDE RECORDS SUMMARY | 2025-10-11 13:44 | XMS_ITS | Clinical Summary ---
Author Organization [facility] [place] [address] [employer] Address [address] [place] [phone] Care Team Providers Care Parts Runner Name Role Phone Lisset Xavier Primary Care Provider [phone] Allergies Active Allergy Reactions Criticality Noted Date Comments Adhesive Hives Medium 06/15/2025 Medications albuterol HFA (PROVENTIL HFA,VENTOLIN HFA,PROAIR HFA) 90 mcg/actuation inhaler INHALE 2 PUFFS BY MOUTH FOUR TIMES DAILY NEEDED FOR SHORTNESS OF BREATH OR WHEEZING Active ascorbic acid (VITAMIN C) 100 mg tablet Take 1 tablet (100 mg total) by mouth daily Active cetirizine (ZyrTEC) 5 mg tablet Take 1 tablet (5 mg total) by mouth daily Active folic acid-vitamin B6-vitamin B12 (FOLBIC) 2.5-25-2 mg tablet Take 1 tablet by mouth daily Active multivitamin tabletIndications: Vitamin Deficiency Prevention Take 1 tablet by mouth Active potassium chloride ER 10 mEq CR tablet Take 1 tablet/capsul e (10 mEq total) by mouth 2 (two) times a day Active pancrelipase (CREON) 36,000 units of lipase capsuleIndications :exocrine pancreatic insufficiency Take 1 capsule by mouth 3 (three) times a day Active Active Problems No known active problems Encounters Date Type Department Care Team Description 08/10/2025 11:23 AM CDT - 08/10/2025 11:59 PM CDT Hospital Encounter [facility] Nuclear Medicine [address] [place] [phone] Discharge Disposition: Discharge to home or self care 08/10/2025 8:08 AM CDT - 08/10/2025 11:59 PM CDT Hospital Encounter [facility] Non-invasive Cardiac Diagnostic Testing [id number] [place] [id number] Discharge Disposition: Discharge to home or self care 08/10/2025 8:04 AM CDT - 08/10/2025 11:59 PM CDT Hospital Encounter [facility] Nuclear Medicine [id number] [place] [phone] Discharge Disposition: Discharge to home or self care 08/10/2025 8:00 AM CDT - 08/10/2025 11:59 PM CDT Hospital Encounter [facility] Nuclear Medicine [address] [place] [phone] Precordial pain; RAY (dyspnea on exertion) Discharge Disposition: Discharge to home or self care 08/10/2025 Results Follow-Up [facility] Cardiology [address] [place] [phone] Pradip Ragsdale MD Stress Test for Myocardial Perfusion 08/03/2025 10:15 AM CDT Ancillary Procedure [facility] Cardiology [address] [place] [phone] Precordial pain; RAY (dyspnea on exertion); History of syncope 07/23/2025 9:45 AM CDT Office Visit [facility] Cardiology [address] [place] [phone] Pradip Ragsdale MD Precordial pain (Primary Dx); RAY (dyspnea on exertion); History of syncope; Pancreatic insufficiency; Lipid screening; Obesity (BMI 30-39.9) 07/23/2025 Results Follow-Up [facility] Cardiology [address] [place] [phone] Pradip Ragsdale MD Electrocardiogram Report, Transthoracic Echo (TTE) Complete W Doppler/CF from Last 3 Months Medical History Medical History Date Comments Heart murmur Family History Medical History Relation Name Comments Hypertension Brother No Known Problems Father No Known Problems Father's Brother No Known Problems Father's Sister No Known Problems Maternal Grandfather No Known Problems Maternal Grandmother Heart failure Mother Hypertension Mother No Known Problems Mother's Brother No Known Problems Mother's Sister No Known Problems Other No Known Problems Paternal Grandfather No Known Problems Paternal Grandmother Hypertension Sister Relation Name Status Comments Brother Father Father's Brother Father's Sister Maternal Grandfather Maternal Grandmother Mother Mother's Brother Mother's Sister Other Paternal Grandfather Paternal Grandmother Sister Social History Tobacco Use Types Packs/Day Years Used Date Smoking Tobacco: Never Smokeless Tobacco: Never Tobacco Cessation:Counseling Given: Not Answered Comments Unknown Sex and Gender Information Value Date Recorded Sex Assigned at Not on file Legal Sex Female 9:37 AM CDT Gender Identity Not on file Sexual Orientation Not on file Last Filed Vital Signs Vital Sign Reading Time Taken Comments Blood Pressure 110/80 08/10/2025 9:56 AM CDT Pulse 75 08/10/2025 9:56 AM CDT Temperature 36.3 C (97.3 F) 03/22/2025 12:07 PM CDT Respiratory Rate 14 07/23/2025 9:56 AM CDT Oxygen Saturation 96% 07/23/2025 9:56 AM CDT Inhaled Oxygen Concentration - - Weight 110.7 kg (244 lb) 07/23/2025 9:56 AM CDT Height 170.2 cm (5' 7) 07/23/2025 9:56 AM CDT Body Mass Index 38.22 07/23/2025 9:56 AM CDT Plan of Treatment Health Maintenance Due Date Last Done Comments Breast Cancer Screening-Mammogram 1965 Cervical Cancer Screening 1965 Colon Cancer Screening-Colonoscopy 1965 Depression Screening 1965 Hepatitis C Screening 1965 DTaP/Tdap/Td Vaccine (1 - Tdap) 1976 Regular Well Visit/Exam 18-64 1983 Zoster Vaccine (1 of 2) 2015 Influenza Vaccine (#1) 2025 07/16/2023 Hepatitis B Screening Completed 11/07/2012 Pneumococcal vaccine <65 Aged Out No longer eligible based on patient's age to complete this topic Procedures Procedure Name Priority Date/Time Associated Diagnosis Comments STRESS TEST FOR DUAL READ Schedule Routine, Read Routine (OP Routine) 08/10/2025 11:55 AM CDT Precordial pain RAY (dyspnea on exertion) NM MPI SPECT (REST AND/OR STRESS) MULTIPLE STUDIES Schedule Routine, Read Routine (OP Routine) 08/10/2025 11:55 AM CDT Precordial pain RAY (dyspnea on exertion) TRANSTHORACIC ECHO (TTE) COMPLETE W DOPPLER/CF WO CONTRAST Routine 08/03/2025 11:14 AM CDT Precordial pain RAY (dyspnea on exertion) History of syncope ELECTROCARDIOGRAM REPORT Routine 025 2:45 PM CDT Precordial pain POCT LIPID PANEL Routine 07/23/2025 10:04 AM CDT Lipid screening from Last 3 Months Results * NM MPI SPECT (Rest and/or Stress) Multiple Studies (08/10/2025 11:55 AM CDT) Anatomical Region Laterality Modality Body N/A Nuclear Medicine 08/10/2025 1:46 PM CDT Impressions 08/10/2025 2:33 PM CDT 1. Normal rest and pharmacologic-stress myocardial perfusion. 2. Normal left ventricular size and systolic function. 3. [id number] coronary artery calcifications of the LAD. Dr. Childress also participated in the interpretation of this examination. Dictated by: Citlali Fallon M.D. The radiology attending physician has personally reviewed this study, and had reviewed and/or edited this written report and agrees with it. Electronically signed by: King Hughes M.D. Narrative 08/10/2025 2:33 PM CDT EXAMINATION: MYOCARDIAL IMAGING (PHARMACOLOGIC-STRESS AND REST/SPECT/CT) DATE OF STUDY: 08/10/2025 RADIOPHARMACEUTICAL: 10.2 mCi, 31.6 mCi Tc-99m tetrofosmin i.v. HISTORY: 59-year-old female with a past medical history of bariatric surgery, pancreatic insufficiency, and syncope, being evaluated for chest discomfort and shortness of breath Evaluate for ischemia and/or myocardial infarction. The patient's body mass index (BMI) was 38.2. The electrocardiographic portion of today's exercise stress examination was negative for ischemia. FINDINGS: Both stress and rest imaging were performed, in the following order: rest/stress FINDINGS: An intravenous infusion of 0.4 mg Regadenoson (A2A adenosine receptor agonist Lexiscan, infused intravenously over approximately 10 seconds, followed approximately after another 20 seconds by tracer infusion) was performed without low level exercise on the date indicated above. A complete description of the stress test and electrocardiographic results documented by the supervising [employer] school professional is available in the [facility] electronic medical record. Standard myocardial perfusion images were obtained after tracer injection at the peak effect of the drug. Low-dose CT images spanning the heart were obtained for attenuation correction. Rest Imaging: Standard myocardial perfusion images were obtained after resting tracer injection. Low-dose CT images spanning the heart were obtained for attenuation correction. COMPARISON: None The projection images were reviewed for image quality, and reveal no significant artifacts. There is widely normal distribution of activity in the left and right ventricular myocardium on both stress and rest images. No significant reversibility to suggest ischemia. Normal rest perfusion. Gated post-stress images demonstrate normal left ventricular volume, normal left ventricular wall motion and normal ejection fraction of 50 % (normal >45%). Additional gated rest images demonstrate normal left ventricular wall motion and a resting left ventricular ejection fraction of 59%. Incidental findings on the low-dose CT images: Lungs are clear. Status post bariatric surgery. Ivmu-ky-haqzuxec calcifications of the LAD. s.p. bariatric surgery. Normal breast tissue, Multilevel degenerative changes of the spine. Procedure Note King Hughes MD - 08/10/2025 EXAMINATION: MYOCARDIAL IMAGING (PHARMACOLOGIC-STRESS AND REST/SPECT/CT) DATE OF STUDY: 08/10/2025 RADIOPHARMACEUTICAL: 10.2 mCi, 31.6 mCi Tc-99m tetrofosmin i.v. HISTORY: 59-year-old female with a past medical history of bariatric surgery, pancreatic insufficiency, and syncope, being evaluated for chest discomfort and shortness of breath Evaluate for ischemia and/or myocardial infarction. The patient's body mass index (BMI) was 38.2. The electrocardiographic portion of today's exercise stress examination was negative for ischemia. FINDINGS: Both stress and rest imaging were performed, in the following order: rest/stress FINDINGS: An intravenous infusion of 0.4 mg Regadenoson (A2A adenosine receptor agonist Lexiscan, infused intravenously over approximately 10 seconds, followed approximately after another 20 seconds by tracer infusion) was performed without low level exercise on the date indicated above. A complete description of the stress test and electrocardiographic results documented by the supervising [employer] professional is available in the [facility] electronic medical record. Standard myocardial perfusion images were obtained after tracer injection at the peak effect of the drug. Low-dose CT images spanning the heart were obtained for attenuation correction. Rest Imaging: Standard myocardial perfusion images were obtained after resting tracer injection. Low-dose CT images spanning the heart were obtained for attenuation correction. COMPARISON: None The projection images were reviewed for image quality, and reveal no significant artifacts. There is widely normal distribution of activity in the left and right ventricular myocardium on both stress and rest images. No significant reversibility to suggest ischemia. Normal rest perfusion. Gated post-stress images demonstrate normal left ventricular volume, normal left ventricular wall motion and normal ejection fraction of 50 % (normal >45%). Additional gated rest images demonstrate normal left ventricular wall motion and a resting left ventricular ejection fraction of 59%. Incidental findings on the low-dose CT images: Lungs are clear. Status post bariatric surgery. Mizs-pm-ofhhyimv calcifications of the LAD. s.p. bariatric surgery. Normal breast tissue, Multilevel degenerative changes of the spine. IMPRESSION: 1. Normal rest and pharmacologic-stress myocardial perfusion. 2. Normal left ventricular size and systolic function. 3. Piuw-ea-xvcnfprh coronary artery calcifications of the LAD. Dr. Childress also participated in the interpretation of this examination. Dictated by: Citlali Fallon M.D. The radiology attending physician has personally reviewed this study, and had reviewed and/or edited this written report and agrees with it. Electronically signed by: King Hughes M.D. Pradip Ragsdale MD IM NM PROCEDURES Final Result * Stress Test for Myocardial Perfusion (08/10/2025 11:55 AM CDT) Anatomical Region Laterality Modality Nuclear Medicine 08/10/2025 8:00 AM CDT Narrative 08/10/2025 12:30 [place] [address] MPI Imaging Report Patient Name: DAVID HAQ : 1965 Study Date: 08/10/2025 8:00:00 AM Sex: F Tech: BW Ref Provider: PRADIP RAGSDALE Height(Cm): BSA: Weight(Kg): Heart Rate: 137 Order Provider: PRADIP RAGSDALE PROCEDURES: Pharmacologic SPECT Report.: Myocardial perfusion imaging with Tetrofosmin SPECT at rest and post regadenoson (Lexiscan) infusion. INDICATIONS: R07.2 Precordial pain and R06.09 Other forms of dyspnea. FINDINGS: Procedure Data: Resting HR 91 bpm Peak HR: 114 bpm Predicted Maximal HR 161 bpm Target HR: 137 bpm Percent Max Predicted HR Achieved: 70.81 % Baseline BP: 110/80 mmHg Peak BP: 100/70 mmHg Reason for Termination: Lexiscan protocol complete. Supervising Physician: The Supervising Physician is Dr. Oconnell. Resting ECG: Normal sinus rhythm. Post Pharm ECG: No diagnostic ST changes. Arrhythmia: Rare PVCs. Cardiac Symptoms With Stress: Symptoms with stress were None. BP Response: Blood pressure response is appropriate. CONCLUSIONS: 1. Test negative for pharmacologic induced inducible ishemia by electrocardiographic criteria at maximal work load. 2. SPECT to follow and should be correlated with this study. Electronically Signed By: Marisa Oconnell MD 08/10/2025 12:28:14 PM CDT Procedure Note Sandy Oconnell MD - 08/10/2025 [place] [address] MPI Imaging Report Patient Name: DAVID HAQ : 1965 Study Date: 08/10/2025 8:00:00 AM Sex: F Tech: BW Ref Provider: PRADIP RAGSDALE Height(Cm): BSA: Weight(Kg): Heart Rate: 137 Order Provider: PRADIP RAGSDALE PROCEDURES: Pharmacologic SPECT Report.: Myocardial perfusion imaging with Tetrofosmin SPECT at rest and postregadenoson (Lexiscan) infusion. INDICATIONS: R07.2 Precordial pain and R06.09 Other forms of dyspnea. FINDINGS: Procedure Data: Resting HR 91 bpm Peak HR: 114 bpm Predicted Maximal HR 161 bpm Target HR: 137 bpm Percent Max Predicted HR Achieved: 70.81 % Baseline BP: 110/80 mmHg Peak BP: 100/70 mmHg Reason for Termination: Lexiscan protocol complete. Supervising Physician: The Supervising Physician is Dr. Oconnell. Resting ECG: Normal sinus rhythm. Post Pharm ECG: No diagnostic ST changes. Arrhythmia: Rare PVCs. Cardiac Symptoms With Stress: Symptoms with stress were None. BP Response: Blood pressure response is appropriate. CONCLUSIONS: 1. Test negative for pharmacologic induced inducible ishemia byelectrocardiographic criteria at maximal work load. 2. SPECT to follow and should be correlated with this study. Electronically Signed By: Marisa Oconnell MD 08/10/2025 12:28:14 PM CDT us Pradip Ragsdale MD CV STRESS PROCEDURES Final Resul t * TRANSTHORACIC ECHO (TTE) COMPLETE W DOPPLER/CF WO CONTRAST (08/03/2025 11:14 AM CDT) Estimated EF 60-65 % CONS SCIMAGE EF Mod BP 64 % CONS SCIMAGE Anatomical Region Laterality Modality Ultrasound 08/03/2025 10:4 5 AM CDT Narrative 08/03/2025 1:06 PM CDT [facility] Cardiology [address], [place] [address] [address] [facility] [address], [place] [address] P:[phone] P:[phone] Echocardiographic Report Patient Name: DAVID HAQ : 1965 Study Date: 08/03/2025 10:45:46 AM Sex: F Environmental Officer: WILLIAM Location: [place] Ref Provider: PRADIP RAGSDALE Height(Cm): 170 BSA: 2.29 Weight(Kg): 110.7 Heart Rate: 70 BP: 132 / 84 Quality: Good Order Provider: PRADIP RAGSDALE PROCEDURES: Echocardiographic Report: Transthoracic echocardiogram with complete 2D, M-Mode, and color Doppler examination. With Strain Analysis. INDICATIONS: Hx-Syncope, Dyspnea on Exertion, and Precordial pain. MEASUREMENTS: 2D/MM Value Range Doppler Value Range EF Mod BP 64 % [ 54 - 74 ] AV Mean PG 4 mmHg Estimated EF 60-65 % AV Peak Wesley 1.32 m/s [ 1.00 - 1.70 ] LV GLS -17.84 % AV Peak PG 7 mmHg LVIDd 2D 4.02 cm [ 3.80 - 5.20 ] AV VTI 28.49 cm LVIDs 2D 2.45 cm [ 2.20 - 3.50 ] LVOT Diam 2.00 cm [ 1.70 - 2.10 ] LVPWd 2D 1.31 cm [ 0.60 - 0.90 ] LVOT Peak Wesley 0.81 m/s [ 0.70 - 1.10 ] IVSd 2D 1.29 cm [ 0.60 - 0.90 ] LVOT VTI 20.12 cm LA Dimension 2D 2.86 cm [ 2.70 - 3.80 ] MV E Peak Wesley 0.63 m/s [ 0.60 - 1.30 ] AoR Diam 2D 3.20 cm [ 2.70 - 3.30 ] MV A Peak Wesley 0.81 m/s [ 1.00 - 1.20 ] LA Volume 60.74 ml [ 22.00 - 52.00 ] MV Mean PG 1 mmHg [ 0 - 5 ] LA Volume Index 27 cc/m2 [ 16 - 28 ] MV PHT 58 msec [ 20 - 100 ] RA Volume 47.47 ml MVA PHT 3.83 cm2 [ 2.00 - 4.00 ] MV Decel Time 221 msec [ 104 - 258 ] PV Peak Wesley 0.81 m/s [ 0.40 - 0.80 ] RV S` 0.09 m/s Lateral E` 0.09 m/s [ 0.10 - 0.15 ] Septal E` 0.07 m/s [ 0.08 - 0.15 ] E` 0.08 m/s E/E` 8 Tapse 1.69 cm [ 1.71 - 5.00 ] 2D/MM Value Range Doppler Value Range - FINDINGS: Interpretation Site: Exam was interpreted at [facility]. Left Ventricle: Normal left ventricular systolic function. No focal wall motion abnormalities. Normal left ventricular size. Moderate concentric left ventricular hypertrophy. Impaired diastolic relaxation Grade I. Ejection fraction is measured at 64 %. Ejection Fraction is visually estimated to be 60-65 %. Global Longitudinal Strain is -18 %. GLS is borderline. Right Ventricle: Normal right ventricular size. Normal right ventricular systolic function. Left Atrium: There is mild enlargement of left atrium. Right Atrium: The right atrium is normal in size. Atrial Septum: Normal atrial septum. Mitral Valve: Mitral valve leaflets appear mildly thickened. Mild mitral valve regurgitation. There is no hemodynamically significant mitral stenosis by Doppler. Aortic Valve: Normal appearance of the aortic valve. No evidence of hemodynamically significant aortic stenosis by Doppler. Trileaflet aortic valve. Tricuspid Valve: Normal appearance of the tricuspid valve. Right ventricular systolic pressure could not be estimated due to inadequate visualization of the tricuspid regurgitation jet. Trivial regurgitation in the tricuspid valve. Pulmonic Valve: Normal appearance of the pulmonic valve. No pulmonic stenosis. Mild pulmonic regurgitation. Pericardium: Normal pericardium with no significant pericardial effusion. Aorta: Aortic root not well visualized. IVC: Normal size and normal respiratory collapse consistent with normal right atrial pressure (<5 mmHg). CONCLUSIONS: Normal left ventricular systolic function. No focal wall motion abnormalities. Normal left ventricular size. Moderate concentric left ventricular hypertrophy. Impaired diastolic relaxation Grade I. Ejection fraction is measured at 64 %. Ejection Fraction is visually estimated to be 60-65 %. Global Longitudinal Strain is -18 %. GLS is borderline. There is mild enlargement of left atrium. Mitral valve leaflets appear mildly thickened. Mild mitral valve regurgitation. Mild pulmonic regurgitation. Normal sinus rhythm. Electronically Signed By: Eugenio Del Rosario MD 08/03/2025 1:05:39 PM CDT Procedure Note Eugenio Del Rosario MD - 08/03/2025 [facility] Cardiology [address] [facility] [address], [place] [address] [address] [facility] [address] [address] P:[phone] P:[phone] Echocardiographic Report Patient Name: DAVID HAQ : 1965 Study Date: 08/03/2025 10:45:46 AM Sex: F Environmental Officer: WILLIAM Location: [facility] Provider: PRADIP RAGSDALE Height(Cm): 170 BSA: 2.29 Weight(Kg): 110.7 Heart Rate: 70 BP: 132 / 84 Quality: Good Order Provider: PRADIP RAGSDALE PROCEDURES: Echocardiographic Report: Transthoracic echocardiogram with complete 2D, M-Mode, and color Dopplerexamination. With Strain Analysis. INDICATIONS: Hx-Syncope, Dyspnea on Exertion, and Precordial pain. MEASUREMENTS: 2D/MM Value Range Doppler ValueRange EF Mod BP 64 % [ 54 - 74 ] AV Mean PG 4mmHg Estimated EF 60-65 % AV Peak Wesley 1.32m/s [ 1.00 - 1.70 ] LV GLS -17.84 % AV Peak PG 7mmHg LVIDd 2D 4.02 cm [ 3.80 - 5.20 ] AV VTI 28.49cm LVIDs 2D 2.45 cm [ 2.20 - 3.50 ] LVOT Diam 2.00cm [ 1.70 - 2.10 ] LVPWd 2D 1.31 cm [ 0.60 - 0.90 ] LVOT Peak Wesley 0.81m/s [ 0.70 - 1.10 ] IVSd 2D 1.29 cm [ 0.60 - 0.90 ] LVOT VTI 20.12cm LA Dimension 2D 2.86 cm [ 2.70 - 3.80 ] MV E Peak Wesley 0.63m/s [ 0.60 - 1.30 ] AoR Diam 2D 3.20 cm [ 2.70 - 3.30 ] MV A Peak Wesley 0.81m/s [ 1.00 - 1.20 ] LA Volume 60.74 ml [ 22.00 - 52.00 ] MV Mean PG 1mmHg [ 0 - 5 ] LA Volume Index 27 cc/m2 [ 16 - 28 ] MV PHT 58msec [ 20 - 100 ] RA Volume 47.47 ml MVA PHT 3.83cm2 [ 2.00 - 4.00 ] MV Decel Time 221 msec [ 104 - 258 ] PV Peak Wesley 0.81 m/s [ 0.40 - 0.80 ] RV S` 0.09 m/s Lateral E` 0.09 m/s [ 0.10 - 0.15 ] Septal E` 0.07 m/s [ 0.08 - 0.15 ] E` 0.08 m/s E/E` 8 Tapse 1.69 cm [ 1.71 - 5.00 ] 2D/MM Value Range Doppler ValueRange - FINDINGS: Interpretation Site: Exam was interpreted at [facility]. Left Ventricle: Normal left ventricular systolic function. No focal wall motionabnormalities. Normal left ventricular size. Moderate concentric left ventricular hypertrophy.Impaired diastolic relaxation Grade I. Ejection fraction is measured at 64 %.Ejection Fraction is visually estimated to be 60-65 %. Global Longitudinal Strain is -18 %. GLSis borderline. Right Ventricle: Normal right ventricular size. Normal right ventricular systolicfunction. Left Atrium: There is mild enlargement of left atrium. Right Atrium: The right atrium is normal in size. Atrial Septum: Normal atrial septum. Mitral Valve: Mitral valve leaflets appear mildly thickened. Mild mitral valveregurgitation. There is no hemodynamically significant mitral stenosis by Doppler. Aortic Valve: Normal appearance of the aortic valve. No evidence of hemodynamicallysignificant aortic stenosis by Doppler. Trileaflet aortic valve. Tricuspid Valve: Normal appearance of the tricuspid valve. Right ventricular systolicpressure could not be estimated due to inadequate visualization of the tricuspidregurgitation jet. Trivial regurgitation in the tricuspid valve. Pulmonic Valve: Normal appearance of the pulmonic valve. No pulmonic stenosis. Mildpulmonic regurgitation. Pericardium: Normal pericardium with no significant pericardial effusion. Aorta: Aortic root not well visualized. IVC: Normal size and normal respiratory collapse consistent with normal rightatrial pressure (<5 mmHg). CONCLUSIONS: Normal left ventricular systolic function. No focal wall motionabnormalities. Normal left ventricular size. Moderate concentric left ventricular hypertrophy.Impaired diastolic relaxation Grade I. Ejection fraction is measured at 64 %.Ejection Fraction is visually estimated to be 60-65 %. Global Longitudinal Strain is -18 %. GLSis borderline. There is mild enlargement of left atrium. Mitral valve leaflets appear mildly thickened. Mild mitral valveregurgitation. Mild pulmonic regurgitation. Normal sinus rhythm. Electronically Signed By: Eugenio Del Rosario MD 08/03/2025 1:05:39 PM CDT Result [facility] Pradip Ragsdale MD CV ECHO PROCEDURES Final Result * Electrocardiogram Report (07/23/2025 2:45 PM CDT) 07/23/2025 2:45 PM CDT us Pradip Ragsdale MD ECG ORDERABLES Final Result * POCT lipid panel (07/23/2025 10:04 AM CDT) Cholesterol, POC 178 <200 MG/DL HDL, POC 49 >=40 mg/dL Triglycerides, POC 132 <=149 mg/dL LDL Cholesterol POC 102 <=129 mg/dL Chol/HDL Ratio, POC 3.6 NONE Non-HDL Cholesterol, POC 129 NONE mg/dL Cholesterol Total, POC 178 30 - 199 mg/dL Capillary blood 07/23/2025 1 0:04 AM CDT Pradip Ragsdale MD POINT OF CARE TEST ORDERABLES Fi nal Result from Last 3 Months Insurance [facility] CHOICE PLUS Care Teams Parts Runner Relationship Specialty Start Date End Date Lisset Xavier PA [address] [place] [address]. [place] [address] PCP - General Physician Animal Assisted Therapist 06/22/25
--- OUTSIDE RECORDS SUMMARY | 2025-10-11 13:44 | XMS_ITS | Clinical Summary ---
Author Organization [facility] Address [address] [place] [id number] Care Team Providers Care Pulmonology Technician Name Role Phone Wilda Ocampo MD Primary Care Provider + Allergies Active Allergy Reactions Criticality Noted Date Comments Tape Hives Low 06/15/2025 Medications * This document contains information received from the source organization and may not represent a complete record from that organization. cetirizine (ZYRTEC) 5 MG tablet Take 1 tablet (5 mg total) by mouth daily. Active Ascorbic Acid (VITAMIN C) 100 MG tablet Take 1 tablet (100 mg total) by mouth daily. Active glucosamine-cho ndroitin 500-400 MG Cap Take 1 capsule by mouth daily. Active pancrelipase, Cgf-Rtqc-Xuci, (CREON) 6000 UNIT CAPSULE ENTERIC COATED PARTICLES Take by mouth 3 (three) times daily with meals. Active Active Problems Problem Noted Date Diagnosed Date Folic acid deficiency 07/19/2025 Vitamin B 12 deficiency 07/19/2025 Low ferritin 07/19/2025 Diarrhea, unspecified type 06/15/2025 H/O bariatric surgery 06/15/2025 Heart murmur 06/15/2025 Encounters Date Type Department Care Team Description 08/04/2025 MyChart Message Enc [facility] Medical [facility] Family Medicine [address] [phone] Lisset Xavier PA-C ECHO Results 07/26/2025 Scan [facility] Scanned, [facility] 07/19/2025 2:20 PM CDT Office Visit [facility] Family Medicine - [address] [phone] Lisset Xavier PA-C Diarrhea (Patient present for Diarrhea, f/u) 07/19/2025 Travel from Last 3 Months Family History Medical History Relation Comments Arthritis Mother Hypertension Mother Arthritis Sister Relation Status Comments Mother Sister Social History Tobacco Use Types Packs/Day Years Used Date Smoking Tobacco: Never Passive Smoke Exposure: Never Smokeless Tobacco: Never Tobacco Cessation:Counseling Given: No Alcohol Use Standard Drinks/Week Comments Not Currently 0 (1 standard drink = 0.6 oz pur e alcohol) occasional PHQ-2 Answer Date Recorded Patient Health Questionnaire-2 Score 0 06/15/2025 Comments No Sex and Gender Information Value Date Recorded Sex Assigned at Female 06/15/2025 12:47 PM CDT 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 Gender Identity Female 06/15/2025 12:47 PM CDT Sexual Orientation Not on file Last Filed Vital Signs Vital Sign Reading Time Taken Comments Blood Pressure 143/90 07/19/2025 3:00 PM CDT Pulse 87 07/19/2025 2:20 PM CDT Temperature 36.5 C (97.7 F) 07/19/2025 2:20 PM CDT Respiratory Rate 14 07/19/2025 2:20 PM CDT Oxygen Saturation 96% 07/19/2025 2:20 PM CDT Inhaled Oxygen Concentration - - Weight 112.5 kg (248 lb) 07/19/2025 2:20 PM CDT Height 170.2 cm (5' 7) 06/15/2025 12:47 PM CDT Body Mass Index 38.84 06/15/2025 12:47 PM CDT Plan of Treatment Upcoming Encounters Date Type Department Care Team (Late st Contact Info) Description 10/18/2025 12:40 PM FITNESS ASSISTANT Office Visit [facility] Family Medicine - [address] [phone] Lisset Xavier PA-C [address] [place] [id number] Health Maintenance Due Date Last Done Comments Cervical Cancer Screening Pa p Smear (Age 30 to 64) Every 3 Years 1965 Annual Physical 1968 Hepatitis C 1983 DTaP, Tdap and Td Vaccines ( 1 - Tdap) 1984 Cervical Cancer Screening Pa p with HPV Testing (Age 30 to 64) Every 5 Years 1995 Cervical Cancer Screening with HPV 1995 Mammogram Screening 2005 Pneumococcal Vaccine: 50+ Ye ars (1 of 1 - PCV) 2015 Zoster Vaccines (1 of 2) 2015 COVID-19 Vaccine (1 - 2024-2 6 season) 2025 Influenza Adult (#1) 2025 07/16/2023 Colorectal Cancer Screening Colonoscopy (10 Years) 06/28/2035 06/28/2025 RSV Immunization or 60+ Years (1 - 1-dose 75+ series) 2040 Hepatitis A Vaccines Aged Out 11/07/2012 No long er eligible based on patient's age to complete this topic PHQ-2 (Physician [place]) Completed 06/15/2025 Meningococcal B Vaccine Aged Out No l onger eligible based on patient's age to complete this topic Meningococcal Vaccine Aged Out No lester breana eligible based on patient's age to complete this topic RSV Immunizations Under 20 Months Aged Out No longer eligible based on patient's age to complete this topic Procedures Procedure Name Priority Date/Time Associated Diagnosis Comments COLONOSCOPY GENERIC (SCAN ORDER) 06/28/2025 from Last 3 Months or Most Recently Relevant to Health Maintenance Results * COLONOSCOPY GENERIC (SCAN ORDER) (06/28/2025) 06/28/2025 [facility] Scanned SCANNING Final Resu lt from Last 3 Months or Most Recently Relevant to Health Maintenance Insurance [facility] Care Teams Pulmonology Technician Relationship Specialty Start Date End Date Wilda Ocampo MD [address] [place] [phone] PCP - General FAMILY PRACTICE 09/14/25
[2025-10-11 13:59] LABS: EDCOVIDSCREEN Negative (Negative); EDINFLUASCREEN Negative (Negative); EDINFLUBSCREEN Negative (Negative)
== END 2025-10-11 14:22 | disposition home or self-care (01) ==
PROVIDERS: Emergency Provider Registered Nurse; PCP Physician Assistant
DX: J32.9 Chronic sinusitis, unspecified (principal); B96.89 Other specified bacterial agents as the cause of diseases classified elsewhere; R05.1 Acute cough; Z20.822 Contact with and (suspected) exposure to COVID-19
CPT/HCPCS: 87426; 87804; 99213; G0463